=== PATIENT | male | born 1990 | race Two or more races ===

== ENCOUNTER 2022-04-17 19:44 | Emergency (ER) | payer MEDICAID ==
[~2022-04-17] VITALS: Ht 190.5 cm; Wt 108.9 kg
[2022-04-17 21:31] VITALS: BP 127/74
[2022-04-17] MEDS ORDERED: FLUORESCEIN SODIUM OPHTH 1 EA STRIP ONE (21:35)
[2022-04-17] MEDS ORDERED: ERYT3.5O9 EACHEYE (21:47)
--- NOTE | 2022-04-17 21:53 | NUR ---
Patient discharged to home in stable condition. Written and verbal after care instructions given. Patient verbalizes understanding of instruction.
[2022-04-17] MEDS ORDERED: TETRAcaine 5 ML BOTTLE RIGHTEYE ONE (22:00)
[2022-04-17] MEDS ORDERED: FLUORESCEIN SODIUM OPHTH 1 EA STRIP OP ONE (22:00)
== END 2022-04-17 21:54 | disposition home or self-care (01) ==
LOC: ER 20:06
DX: S05.01XA Injury of conjunctiva and corneal abrasion without foreign body, right eye, initial encounter (principal); Z79.899 Other long term (current) drug therapy; X58.XXXA Exposure to other specified factors, initial encounter; Y93.89 Activity, other specified; Y92.89 Other specified places as the place of occurrence of the external cause; Y99.8 Other external cause status